=== PATIENT | female | born 1940 | race Caucasian/White ===

== ENCOUNTER 2016-10-21 17:32 | Emergency (ER) | payer OTHER ==
[~2016-10-21] VITALS: Ht 162.6 cm; Wt 90.7 kg
[2016-10-21] MEDS ORDERED: MORPHINE IR 15 MG TABLET PO ONE (18:15)
--- NOTE | 2016-10-21 18:16 | PHYS DOC ---
Past Medical History Past Medical History: CAD, Diabetes-Type II, Hypertension Past Surgical History: Other Additional Past Surgical Histo: CARPAL TUNNEL, RIGHT TOE REPAIR, RIGHT LEG VEIN Alcohol Use: None Drug Use: None Adult General Chief Complaint Chief Complaint: MECHANICAL FALL HPI HPI 75-year-old female presenting to the emergency department today after falling approximately one week ago and reportedly injuring her left wrist and back. She has wrist pain that is sharp moderate. She had placed her wrist in a splint which helped mildly however her pain is not improving. She describes her back pain is sharp and radiates down the left side, Mild to moderate. She denies fecal or urinary incontinence. She denies weakness of her lower extremities. She is able lay bili without difficulty. Review of systems is negative for chest pain shortness of breath headache neck pain. She denies hitting her head. All other review of systems is negative unless otherwise noted in history of present illness. Review of Systems Review of Systems SEE ABOVE. Current Medications Current Medications Current Medications Medications (Trade) Dose Ordered Sig/Rydre Start Time Stop Time Status Last Admin Dose Admin Morphine Sulfate (Morphine Ir) 15 mg 1X ONCE 10/21/16 18:15 10/21/16 18:16 DC 10/21/16 18:20 15 MG Allergies Allergies Allergies Coded Allergies Type Severity Reaction Last Updated Verified oxycodone Adverse Reaction Severe Nausea and Vomiting 11/02/14 Yes Physical Exam Physical Exam Constitutional: Well developed, well nourished, no acute distress, non-toxic appearance. [] HENT: Normocephalic, atraumatic, bilateral external ears normal, oropharynx moist, no oral exudates, nose normal. Eyes: PERRLA, EOMI, conjunctiva normal, no discharge. [] Neck: Normal range of motion, no tenderness, supple, no stridor. Cardiovascular:Heart rate regular rhythm, no murmur [] Lungs & Thorax: Bilateral breath sounds clear to auscultation Abdomen: Bowel sounds normal, soft, no tenderness, no masses, no pulsatile masses. [] Skin: Warm, dry, no erythema, no rash. Back: No tenderness, no CVA tenderness. [] Extremities: The patient's left wrist is warm and well perfused with a palpable pulse. Mild tenderness along the radius. Nontender scaphoid bone. Nontender snuffbox. Patient is able to given A-OK, cross fingers and given a thumbs up. Normal sensation in the hand. 2 second cap refill. Otherwise the elbow and shoulder proximally are nontender. Normal range of motion in the other extremities with 2 second cap refill. The patient is mild tenderness in the lumbar back in the midline. No erythema lacerations or abrasions or ecchymosis present. Neurologic: Alert and oriented X 3, normal motor function, normal sensory function, no focal deficits noted. Psychologic: Affect normal, judgement normal, mood normal. [] Current Patient Data Vital Signs Vital Signs Date Time Temp Pulse Resp B/P (MAP) Pulse Ox O2 Delivery O2 Flow Rate FiO2 10/21/16 19:37 84 159/70 (99) 93 Room Air 10/21/16 18:20 16 10/21/16 18:06 98.1 98.1 EKG EKG [] Radiology/Procedures Radiology/Procedures [] Left wrist x-ray shows a nondisplaced fracture of the radius without intra- articular extension Lumbar spine x-ray shows possible L5 compression fracture. Otherwise no obvious acute pathology. Course & Med Decision Making Course & Med Decision Making Pertinent Labs and Imaging studies reviewed. (See chart for details) 75-year-old female presenting to the emergency department today with left wrist pain and low back pain. X-rays showed a nondisplaced left distal radius fracture and lumbar x-ray was concerning for possible compression fracture of unknown chronicity. The patient's left wrist was splinted in the emergency department in [facility]. She was able to ambulate after receiving medications for pain. She was subsequently discharged home to follow up with her primary care doctor in 3-4 days. They were to return if their symptoms worsened or if they were concerned for any reason. [id number] discharge instructions and return precautions were given. Patient's questions were answered to their satisfaction. Patient is comfortable plan. Dragon Disclaimer Dragon Disclaimer This electronic medical record was generated, in whole or in part, using a voice recognition dictation system. Departure Departure Impression: Primary Impression: Wrist pain, left Additional Impressions: Back pain Distal radius fracture, left Disposition: 01 HOME, SELF-CARE Condition: STABLE Referrals: MARIA M FIGUEREDO (PCP) Patient Instructions: Radial Fracture Additional Instructions: Thank you for allowing us to participate in your care today. Followup with your primary care physician in 3 days if your symptoms do not improve. If you do not have a primary care provider you can ask for a list of our primary care providers. Return to the emergency department you have any new or concerning findings. This should be evaluated by the primary care physician and any necessary consulting services for continued management within a few days after discharge. Return to emergency room if you have any new or concerning symptoms including but not limited to fever, chills, nausea, vomiting, intractable pain, any new rashes, chest pain, shortness of air, uncontrolled bleeding, difficulty breathing, and/or vision loss. You may have been prescribed medication that can change in your level of thinking and ability to operate machinery. These medications include hydrocodone and Ativan. Also, Benadryl has been known to do this as well. Be sure to check with your pharmacist and ask if the medications you've prescribed can affect your level of consciousness. I recommend not operating heavy machinery or driving while on medication such as these. Scripts Morphine Sulfate (MORPHINE SULFATE) 15 Mg Tablet 1 TAB PO PRN Q6-8HRS Y for SEVERE PAIN, #8 TAB Prov: SHANNAN ROSADO MD 10/21/16 Problem Qualifiers SHANNAN ROSADO MD October 21, 2016 18:16
[2016-10-21] MEDS ORDERED: MORP15TA PO (19:27)
[2016-10-21 19:37] VITALS: BP 159/70
--- NOTE | 2016-10-22 09:41 | RAD ---
PROCEDURE Lumbar spine x-rays three views. Left wrist x-rays three views. HISTORY Fall, back pain, left wrist pain COMPARISON No prior FINDINGS Lumbar spine: Lumbar vertebral body height and alignment intact. L3 laminectomy and fusion with pedicle screws with brackets at L3-L4. Disc space narrowing L3-L4 and L4-5 and L4-5 disc osteophyte. Facet osteophytes L4-5 L5-S1. No fracture evident. No loosening of the hardware evident. Abdominal aortic calcified plaque. Left wrist: Triangular fibrocartilage chondrocalcinosis as well as mild calcifications at the radiocarpal joint and proximal carpal row could be indicative of calcium pyrophosphate deposition however no significant arthritic changes evident there may be mild osteoarthritis at the scaphoid trapezium trapezoid joint.. No fracture or dislocation. Arterial vascular calcification. IMPRESSION Lumbar spine: No acute osseous injury. Postsurgical changes and disc disease as described above. Left wrist: No acute osseous injury. Electronically signed by: Mt Roy MD (October 21, 2016 22:26:07)
== END 2016-10-21 21:52 | disposition home or self-care (01) ==
LOC: ER 17:32
DX: S52.502A Unspecified fracture of the lower end of left radius, initial encounter for closed fracture (principal); M54.5 Low back pain; I25.10 Atherosclerotic heart disease of native coronary artery without angina pectoris; I10 Essential (primary) hypertension; E11.9 Type 2 diabetes mellitus without complications; Z88.5 Allergy status to narcotic agent; W18.39XA Other fall on same level, initial encounter; Y93.89 Activity, other specified; Y92.89 Other specified places as the place of occurrence of the external cause; Y99.8 Other external cause status
CPT/HCPCS: 29125; 72100; 73110; 99284-25

== ENCOUNTER 2016-12-11 10:51 | Emergency (ER) | payer OTHER ==
[~2016-12-11] VITALS: Ht 162.6 cm; Wt 90.7 kg
[~2016-12-11 10:51] MED LIST: MORP15TA PO
[2016-12-11] MEDS ORDERED: fentaNYL PF VIAL 100 MCG/2 ML VIAL IV PRN (11:30)
[2016-12-11 11:31] LABS: BASO % 1 % (0-3); EOS % 3 % (0-3); HEMATOCRIT 33.8 % (36.0-47.0); HEMOGLOBIN 11.1 g/dL (12.0-15.5); LYMPH # 1.7 x10^3/uL (1.0-4.8); LYMPH % 27 % (24-48); MEAN CORPUSCULAR HEMOGLOBIN 30 pg (25-35); MEAN CORPUSCULAR HGB CONC 33 g/dL (31-37); MEAN CORPUSCULAR VOLUME 92 fL (79-100); MONO % 7 % (0-9); NEUT % 62 % (31-73); PLATELET COUNT 138 x10^3/uL (140-400); RED BLOOD COUNT 3.67 x10^6/uL (3.50-5.40); WHITE BLOOD COUNT 6.4 x10^3/uL (4.0-11.0)
[2016-12-11 11:44] LABS: CALCIUM 9.7 mg/dL (8.5-10.1); CREATININE 1.7 mg/dL (0.6-1.0); GFR 29.1; POTASSIUM 4.7 mmol/L (3.5-5.1)
[2016-12-11 11:49] LABS: ALBUMIN 3.5 g/dL (3.4-5.0); ALBUMIN/GLOBULIN RATIO 0.9 (1.0-1.7); C-REACTIVE PROTEIN 11.6 mg/L (0-3.3); TOTAL BILIRUBIN 0.4 mg/dL (0.2-1.0); TOTAL PROTEIN 7.2 g/dL (6.4-8.2)
--- NOTE | 2016-12-11 13:00 | PHYS DOC ---
Past Medical History Past Medical History: CAD, Diabetes-Type II, Hypertension Past Surgical History: Other Additional Past Surgical Histo: CARPAL TUNNEL, RIGHT TOE REPAIR, RIGHT LEG VEIN Alcohol Use: None Drug Use: None Adult General Chief Complaint Chief Complaint: left knee pain HPI HPI Patient is a 76 year old female brought to the ED by her daughter with the complaint of left knee pain since yesterday. She also has swelling and warmth of the left knee. She states she knows she has arthritis in the knees but it has never hurt like this before. She denies injury. For no apparent reason, her knee just swelled up and started hurting. She takes hydrocodone one half of a 7.5 mg as needed for pain, she is actually had 3 of those over a few hours without relief, also used a muscle rub on her knee without relief. She has felt mildly feverish and has had some chills for 1-2 days. No vomiting. No history of a blood clot. Orthopedic physician is Dr. Gray. She has had surgery on her right foot and leg but no orthopedic surgery on the left. PCP Dr. Hector Poe Review of Systems Review of Systems Constitutional: As in history of present illness Eyes: Denies change in visual acuity, redness, or eye pain [] HENT: Denies nasal congestion or sore throat [] Respiratory: Denies cough or shortness of breath [] Cardiovascular: Denies chest pain GI: Denies abdominal pain, nausea, vomiting, bloody stools or diarrhea [] : Denies dysuria or hematuria [] Musculoskeletal: As in history of present illness. Denies swelling or pain of any other joint. Integument: Denies rash or skin lesions [] Neurologic: Denies headache, focal weakness or sensory changes [] Current Medications Current Medications Current Medications Medications (Trade) Dose Ordered Sig/Ryder Start Time Stop Time Status Last Admin Dose Admin Fentanyl Citrate (Fentanyl 2ml Vial) 50 mcg PRN Q15MIN PRN 12/11/16 11:30 12/11/16 13:57 DC 12/11/16 11:33 50 MCG Allergies Allergies Allergies Coded Allergies Type Severity Reaction Last Updated Verified oxycodone Adverse Reaction Severe Nausea and Vomiting 11/02/14 Yes Physical Exam Physical Exam Constitutional: Well developed, well nourished, no acute distress, non-toxic appearance. Alert, mentating normally. Temp 98.2. HENT: Normocephalic, atraumatic, bilateral external ears normal, nose normal. [ ] Eyes: conjunctiva normal, no discharge. [] Neck: Normal range of motion, no stridor. [] Cardiovascular:Heart rate regular rhythm, no murmur [] Lungs & Thorax: Bilateral breath sounds clear to auscultation [] Skin: Warm, dry, no erythema, no rash. [] Extremities: Except for left lower extremity, No tenderness, no cyanosis, no clubbing, ROM intact, no edema. Left leg: Knee appears to be mildly swollen with a small joint effusion. The knee is not red. It is slightly increased in warmth compared to the rest of the left leg. The left calf is soft and nontender. The left ankle and foot are not swollen, no redness anywhere on the left leg. DP pulses intact. Neurologic: Alert and oriented X 3, normal motor function, normal sensory function, no focal deficits noted. [] Current Patient Data Vital Signs Vital Signs Date Time Temp Pulse Resp B/P (MAP) Pulse Ox O2 Delivery O2 Flow Rate FiO2 12/11/16 13:43 74 148/72 (97) Room Air 12/11/16 13:13 94 12/11/16 11:33 16 12/11/16 11:00 98.2 98.2 Lab Values Laboratory Tests Test 12/11/16 11:25 White Blood Count 6.4 x10^3/uL (4.0-11.0) Red Blood Count 3.67 x10^6/uL (3.50-5.40) Hemoglobin 11.1 g/dL (12.0-15.5) L Hematocrit 33.8 % (36.0-47.0) L Mean Corpuscular Volume 92 fL (79-100) Mean Corpuscular Hemoglobin 30 pg (25-35) Mean Corpuscular Hemoglobin Concent 33 g/dL (31-37) Red Cell Distribution Width 14.0 % (11.5-14.5) Platelet Count 138 x10^3/uL (140-400) L Neutrophils (%) (Auto) 62 % (31-73) Lymphocytes (%) (Auto) 27 % (24-48) Monocytes (%) (Auto) 7 % (0-9) Eosinophils (%) (Auto) 3 % (0-3) Basophils (%) (Auto) 1 % (0-3) Neutrophils # (Auto) 4.0 x10^3uL (1.8-7.7) Lymphocytes # (Auto) 1.7 x10^3/uL (1.0-4.8) Monocytes # (Auto) 0.4 x10^3/uL (0.0-1.1) Eosinophils # (Auto) 0.2 x10^3/uL (0.0-0.7) Basophils # (Auto) 0.0 x10^3/uL (0.0-0.2) Erythrocyte Sedimentation Rate 36 (0-25) H Sodium Level 139 mmol/L (136-145) Potassium Level 4.7 mmol/L (3.5-5.1) Chloride Level 107 mmol/L (98-107) Carbon Dioxide Level 24 mmol/L (21-32) Anion Gap 8 (6-14) Blood Urea Nitrogen 46 mg/dL (7-20) H Creatinine 1.7 mg/dL (0.6-1.0) H Estimated GFR (Cockcroft-Gault) 29.1 BUN/Creatinine Ratio 27 (6-20) H Glucose Level 173 mg/dL (70-99) H Calcium Level 9.7 mg/dL (8.5-10.1) Total Bilirubin 0.4 mg/dL (0.2-1.0) Aspartate Amino Transferase (AST) 33 U/L (15-37) Alanine Aminotransferase (ALT) 39 U/L (14-59) Alkaline Phosphatase 139 U/L (46-116) H C-Reactive Protein, Quantitative 11.6 mg/L (0-3.3) H Total Protein 7.2 g/dL (6.4-8.2) Albumin 3.5 g/dL (3.4-5.0) Albumin/Globulin Ratio 0.9 (1.0-1.7) L Laboratory Tests 12/11/16 11:25 Laboratory Tests 12/11/16 11:25 EKG EKG [] Radiology/Procedures Radiology/Procedures Three-view x-ray of the left knee read by me. Significant DJD but no acute findings. Significant amount of calcification of the vasculature. [] Course & Med Decision Making Course & Med Decision Making Pertinent Labs and Imaging studies reviewed. (See chart for details) 76-year-old female who does have known DJD of the knees presents with atraumatic increased pain and swelling of the left knee for 2 days. Clinical exam is not consistent with DVT, her pain is knee pain. She does have a small joint effusion and warmth of the knee but not redness and no fever. White count is normal, sedimentation rate is normal for age 76, CRP is elevated. I don't believe clinically the patient has a septic knee. Her knee is not red. She is afebrile with no leukocytosis or sedimentation rate elevation. Her x-ray shows significant DJD. I believe she is experiencing knee pain secondary to DJD with a knee effusion. Discussed with the patient and her daughter. I discussed brief course of prednisone to see if that would help her symptoms as an anti-inflammatory, they are agreeable to that. She is a diabetic and I cautioned her that it likely will increase her blood sugar. She's taken prednisone before for poison desean. See instructions for plan. [] Dragon Disclaimer Dragon Disclaimer This electronic medical record was generated, in whole or in part, using a voice recognition dictation system. Departure Departure Impression: Primary Impression: Acute pain of left knee Additional Impression: Degenerative joint disease of left knee Disposition: 01 HOME, SELF-CARE Condition: STABLE Referrals: MARIA M POE (PCP) Patient Instructions: Knee Pain, [id number] Additional Instructions: As we discussed, tests in the ED today indicate the cause of your pain is likely a flareup of degenerative joint disease with fluid on the joint and not infection. The only way to tell for sure is to take fluid off of your knee for lab analysis. This procedure has some risk itself, and I do not recommend it at this time. If your knee does become red in appearance, if you have fever 100.4 or higher, return to emergency because we may want to consider doing that. As we discussed, we will try a 5 day course of prednisone, which is an anti- inflammatory and should help with the pain. It will increase your blood sugars temporarily, I don't think we need to worry about that. Take hydrocodone as prescribed for pain. That is safe to combine with prednisone. Call for follow-up appointment with your orthopedic doctor. Over the next 2-3 days, baby your knee by staying mostly at rest with elevation and ice. Scripts Prednisone (PREDNISONE) 10 Mg Tablet 30 MG PO DAILY for knee pain, arthritis, #5 TAB Prov: BRAVO BAUM MD 12/11/16 Problem Qualifiers BRAVO BAUM MD Dec 11, 2016 13:00
--- NOTE | 2016-12-11 13:12 | RAD ---
Indication: Pain and swelling to the left knee. Time of exam 1304 hours. 3 views of the left knee demonstrate tricompartmental degenerative change with joint space narrowing and marginal spurring. There is chondrocalcinosis of the medial and lateral compartments. There is spurring of the tibial spines. No fracture, dislocation or effusion is seen. Extensive vascular calcifications throughout the femoral popliteal and tibial arterial system is seen. Impression: Chronic changes. No acute bony abnormality is detected.
[2016-12-11 13:43] VITALS: BP 148/72
[2016-12-11] MEDS ORDERED: PRED-220 PO (13:44)
== END 2016-12-11 13:57 | disposition home or self-care (01) ==
LOC: ER 10:51
DX: M17.12 Unilateral primary osteoarthritis, left knee (principal); R50.9 Fever, unspecified; E11.9 Type 2 diabetes mellitus without complications; I10 Essential (primary) hypertension; I25.10 Atherosclerotic heart disease of native coronary artery without angina pectoris; Z88.5 Allergy status to narcotic agent
CPT/HCPCS: 36415; 73562; 80053; 85027; 85651; 86140; 96374; 99285; J3010

== ENCOUNTER → 2016-12-30 | Outpatient (CLI) | payer OTHER ==
[2016-12-11 13:43] VITALS: BP 148/72
[~2016-12-30] MED LIST changes: +PRED-220 PO
--- NOTE | 2016-12-30 16:31 | KCIC ---
EXAM: Dual energy x-ray absorptiometry (DEXA). HISTORY: Post menopausal screening. TECHNIQUE: Dual energy x-ray absorptiometry of the right forearm and left hip was performed. Calculation of bone mineral density based on standard deviations above or below the expected young adult normal value (T-score) was completed. FINDINGS: The average bone mineral density associated with the right forearm is 0.444 g/cm^2, corresponding with a T-score of -2.4. The lowest measured T score is -3.0 within the mid metaphyses. The average total bone mineral density associated with the left hip is 0.755 g/cm^2, corresponding with a T-score of -1.5. No comparison examinations are available. Refer to the worksheets for full detail. IMPRESSION: 1. Osteopenia. Fracture risk is increased. 2. There is focal osteoporosis within the right forearm. Note: Definitions established by the World Health Organization: 1. Normal: T-score is -1.0 or above the expected mean for a young adult. 2. Osteopenia: T-score is between -1.0 and -2.5. 3. Osteoporosis: T-score is -2.5 or below. Electronically signed by: Mee Manrique MD (12/30/2016 4:28 PM) [id number]
== END | disposition home or self-care (01) ==
LOC: KCIC DEXA 14:02
PROVIDERS: ATTEND Family Medicine
DX: M81.0 Age-related osteoporosis without current pathological fracture (principal); Z78.0 Asymptomatic menopausal state
CPT/HCPCS: 77080